=== PATIENT | female | born 1970 | race Caucasian/White ===

== ENCOUNTER 2016-11-16 05:16 | Day surgery (SDC) | payer BC, MEDICAID ==
[2016-11-14 12:03] LABS: MEAN CORPUSCULAR HEMOGLOBIN 27.8 pg (27.0-33.4); MEAN CORPUSCULAR HGB CONC 33.4 g/dL (32.0-36.0); MEAN CORPUSCULAR VOLUME 83 fl (80-97); RED BLOOD COUNT 3.96 10^6/uL (3.72-5.28); RED CELL DISTRIBUTION WIDTH 14.5 % (11.5-14.0)
[2016-11-14 12:18] LABS: APPEARANCE,URINE CLEAR; BILIRUBIN,URINE NEGATIVE (NEGATIVE); GLUCOSE, URINE NEGATIVE (NEGATIVE); KETONES,URINE NEGATIVE (NEGATIVE); LEUKOCYTE ESTERASE,URINE NEGATIVE (NEGATIVE); NITRITE,URINE NEGATIVE (NEGATIVE); PROTEIN,URINE NEGATIVE (NEGATIVE); URINE SPECIFIC GRAVITY 1.009; UROBILINOGEN,URINE NEGATIVE mg/dL (<2.0)
[2016-11-14 12:25] LABS: ANION GAP 10 (5-19); BLOOD UREA NITROGEN 9 mg/dL (7-20); CALCIUM 8.5 mg/dL (8.4-10.2); CARBON DIOXIDE 28 mmol/L (22-30); CHLORIDE 101 mmol/L (98-107); CREATININE RESULT 0.61 mg/dL (0.52-1.25); GLUCOSE 70 mg/dL (75-110); POTASSIUM 4.5 mmol/L (3.6-5.0); SODIUM 139.4 mmol/L (137-145)
[~2016-11-16 05:16] MED LIST: CEFAZOLIN 1 GM/D5W RTU 1 GM/50 ML RTUPB IV PRN; LACTATED RINGERS 1000 ML IV PRN; LIDOCAINE 0.5% INJ-PF (5 MG/ML) 50 ML SDV SUBCUT PRN
[2016-11-16] MEDS ORDERED: LIDOCAINE 1% INJ-PF (10 MG/ML) 30 ML SDV ONE (05:50)
[2016-11-16] MEDS ORDERED: ALBUTEROL SULFATE 0.083% NEB 2.5 MG/3 ML AMPUL NEB ONE ×2 (06:00→06:06)
[2016-11-16] MEDS ORDERED: FENTANYL CITRATE INJ/PF 100 MCG/2 ML AMPUL ONE (06:42)
[2016-11-16] MEDS ORDERED: LIDOCAINE 2% INJ-PF (20 MG/ML) 10 ML AMPUL ONE (06:42)
[2016-11-16] MEDS ORDERED: ONDANSETRON HCL INJ/PF 4 MG/2 ML SDV ONE (06:43)
[2016-11-16] MEDS ORDERED: ACETAMINOPHEN 100 ML IV ONE (06:43)
[2016-11-16] MEDS ORDERED: MIDAZOLAM 2 MG/2 ML INJ ONE (06:43)
[2016-11-16] MEDS ORDERED: PROPOFOL INJ 200 MG/20 ML VIAL IV ONE (06:43)
[2016-11-16] MEDS ORDERED: FENTANYL CITRATE INJ/PF 100 MCG/2 ML AMPUL IV PRN ×3 (07:31)
[2016-11-16] MEDS ORDERED: MEPERIDINE HCL/PF INJ 25 MG/1 ML DISP.SYRIN IV PRN (07:31)
[2016-11-16] MEDS ORDERED: DIPHENHYDRAMINE HCL 50 MG/ML VIAL IV PRN (07:31)
[2016-11-16] MEDS ORDERED: MORPHINE SULFATE 10 MG/ML INJ IV PRN (07:31)
[2016-11-16] MEDS ORDERED: ONDANSETRON HCL INJ/PF 4 MG/2 ML SDV IV PRN (07:31)
[2016-11-16] MEDS ORDERED: PROMETHAZINE HCL INJ 25 MG/1 ML VIAL IV PRN ×2 (07:31)
--- NOTE | 2016-11-16 08:17 | OPERATIVE REPORT E ---
Operative Report NAME: HUSSEIN CHEN : 1970 AGE: 46Y DATE OF SURGERY: 11/16/2016 ROOM: PREOPERATIVE DIAGNOSIS: Menorrhagia. POSTOPERATIVE DIAGNOSIS: Menorrhagia. PROCEDURE: Hysteroscopy and Novasure endometrial ablation. SURGEON: JL KAUR M.D. COMPLICATIONS: None. FINDINGS: A 5 cm length, 4.5 cm width, 124 watt seconds was used for a minute and 26 seconds. Normal endometrial cavity is noted. No polyps or fibroids were appreciated. EUA with no adnexal masses. DESCRIPTION OF PROCEDURE: The patient was taken to the operating room and placed in the modified lithotomy position. Adequate anesthesia was ascertained. Prepped and draped in the usual manner for a hysteroscopy. The cervix readily admitted an operative hysteroscope. After uterine measurements were taken, the Novasure device was deployed after uterine integrity was confirmed. Device was fired post procedure. Good burn was noted through and the uterine integrity was confirmed. Patient taken to recovery room in stable condition. DICTATING PHYSICIAN: JL KAUR M.D. [id number] PHY#: [id number] ID: [id number] JOB#: [id number] ACCT: [id number] cc:JL KAUR M.D. >
[2016-11-16] MEDS ORDERED: MORPHINE INJ 4 MG DOSE (EDIT ROUTE) IM PRN (08:30)
[2016-11-16] MEDS ORDERED: OXYCODONE-ACETAMINOPHEN 5-325 MG TABLET PO PRN (08:30)
[2016-11-16] MEDS ORDERED: PROMETHAZINE HCL INJ 25 MG/1 ML VIAL IM PRN (08:30)
[2016-11-16 09:37] VITALS: BP 103/67
[2016-11-16] MEDS ORDERED: IBUPROFEN 800 MG TABLET PO SCH (14:00)
== END 2016-11-16 09:39 | disposition home or self-care (01) ==
LOC: OROUT 05:16
PROVIDERS: ATTEND Specialist
PROC: 0U5B8ZZ Destruction of Endometrium, Via Natural or Artificial Opening Endoscopic (ICD-10-PCS; principal; 2016-11-16 07:15)
DX: N92.0 Excessive and frequent menstruation with regular cycle (principal); J45.909 Unspecified asthma, uncomplicated; Z88.5 Allergy status to narcotic agent; Z88.2 Allergy status to sulfonamides; Z79.899 Other long term (current) drug therapy; Z87.891 Personal history of nicotine dependence
CPT/HCPCS: 86900; 86901; 36415; 86850; 85027; 81025; 80048; 81001; 94640; 58563; J2250; J0690; J3010; J2405; J2704; J3490; J0131; 952